=== PATIENT | male | born 1990 | race Caucasian/White ===

== ENCOUNTER 2023-05-06 06:57 | Emergency (ER) | payer OTHER ==
[2023-05-06 07:10] VITALS: RESP 22; TEMP 96.8
[2023-05-06] MEDS ORDERED: Sodium Chloride 0.9% 1000 ML 1,000 ML IV STA (07:20)
[2023-05-06] MEDS ORDERED: TORAdol 30 mg Injection IV ONE (07:20)
[2023-05-06] MEDS ORDERED: Zofran 4 MG/2 ML VIAL IV ONE (07:20)
[2023-05-06] MEDS ORDERED: Hydromorphone 1 mg/ml Injection IV ONE ×2 (07:20→10:39)
--- NOTE | 2023-05-06 07:20 | ERPHSYRPT ---
- History of Present Illness Time Seen by Provider: 05/06/23 07:20 Historian: patient Exam Limitations: no limitations Patient Subjective Stated Complaint: Pt states "I tore a ligament in my back about 6 months ago but I was driving home and my right lower back started to hurt and it will not stop." Triage Nursing Assessment: Pt presented alert and oriented skin pwd. P unable to sit still, able to speak in clear full sentences. Physician History: This is a 32-year-old white male patient who presents to the emergency department with sudden onset of right flank pain. There is no history of acute injury. Patient has been diagnosed with a torn lumbar spinal level muscle in the past. Today's pain is more sudden in onset and of higher intensity. There is no radiation of this sharp pain that is present. He has not noticed any hematuria. Patient takes no medication. He is allergic to penicillin. Patient denies chest pain. Patient denies shortness of breath. He has no flulike symptoms. Timing/Duration: today Activities at Onset: none Quality: sharpness, stabbing Abdominal Pain Onset Location: flank (Right) Severity of Pain-Max: moderate Severity of Pain-Current: moderate Modifying Factors: Improves With: nothing Associated Symptoms: denies symptoms Previous symptoms: no prior history, no recent treatment Allergies/Adverse Reactions: Penicillins Allergy (Mild, Verified 07/04/12 20:56) Hx Tetanus, Diphtheria Vaccination/Date Given: No Hx Influenza Vaccination/Date Given: No Hx Pneumococcal Vaccination/Date Given: No Immunizations Up to Date: No Travel Risk - International Travel Have you traveled outside of the country in past 3 weeks: No - Coronavirus Screening Are you exhibiting any of the following symptoms?: No Close contact with a COVID-19 positive Pt in past 14-21 Days: No - Vaccine Status Have you recieved a Covid-19 vaccination: No - Review of Systems Constitutional: No Symptoms Eyes: No Symptoms Ears, Nose, & Throat: No Symptoms Respiratory: No Symptoms Cardiac: No Symptoms Abdominal/Gastrointestinal: No Symptoms Genitourinary Symptoms: Flank Pain (Right flank pain) Musculoskeletal: Back Pain (Right side lumbar level) Skin: No Symptoms Neurological: No Symptoms Psychological: No Symptoms Endocrine: No Symptoms Hematologic/Lymphatic: No Symptoms Immunological/Allergic: No Symptoms All Other Systems: Reviewed and Negative - Past Medical History Pertinent Past Medical History: No - Past Surgical History Past Surgical History: Yes Other Surgical History: thumb - Social History Smoking Status: Never smoker Exposure to second hand smoke: No Drug Use: none Patient Lives Alone: No - Nursing Vital Signs Nursing Vital Signs: Initial Vital Signs Temperature 96.8 F 05/06/23 07:06 Pulse Rate 71 05/06/23 07:06 Respiratory Rate 22 05/06/23 07:06 Blood Pressure 127/75 05/06/23 07:06 O2 Sat by Pulse Oximetry 97 05/06/23 07:06 Pain Scale Pain Intensity 3 - Physical Exam General Appearance: mild distress, alert, anxiety Eye Exam: PERRL/EOMI, eyes nml inspection Ears, Nose, Throat Exam: normal ENT inspection, dry mucous membranes Neck Exam: normal inspection, non-tender, supple, full range of motion Respiratory Exam: normal breath sounds, lungs clear, airway intact, No chest tenderness, No respiratory distress Cardiovascular Exam: regular rate/rhythm, normal heart sounds, normal peripheral pulses Gastrointestinal/Abdomen Exam: soft, normal bowel sounds, No tenderness Rectal Exam: not done Back Exam: normal inspection, normal range of motion, CVA tenderness (Right side), muscle spasm (Right backlumbar spine level), No vertebral tenderness Extremity Exam: normal inspection, normal range of motion, pelvis stable Neurologic Exam: alert, oriented x 3, cooperative, 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, normal mood/affect, nml cerebellar function, sensation nml Skin Exam: normal color, warm, dry Lymphatic Exam: No adenopathy SpO2 Interpretation: normal SpO2: 97 O2 Delivery: Room Air - Course Nursing assessment & vital signs reviewed: Yes Ordered Tests: Active Orders 24 hr Category Date Time Status IV Insertion STAT Care 05/06/23 07:20 Active ABDOMEN AND PELVIS W/0 CONTRAS [CT] Stat Exams 05/06/23 07:21 Completed RECONSTRUCTION [CT] Stat Exams 05/06/23 07:22 Completed AMYLASE Stat Lab 05/06/23 07:20 Completed CBC W DIFF Stat Lab 05/06/23 07:15 Completed CMP Stat Lab 05/06/23 07:20 Completed CULTURE,URINE Stat Lab 05/06/23 09:51 Received LIPASE Stat Lab 05/06/23 07:20 Completed UA W/RFX UR CULTURE Stat Lab 05/06/23 09:51 Completed Medication Summary Generic Name Dose Route Start Last Admin Trade Name Freq PRN Reason Stop Dose Admin Sodium Chloride 500 mls @ 500 mls/hr 05/06/23 09:41 05/06/23 09:45 Sodium Chloride 0.9% 500 Ml IV 05/06/23 10:40 500 mls/hr .Q1H ONE Administration Discontinued Medications Generic Name Dose Route Start Last Admin Trade Name James PRN Reason Stop Dose Admin Hydromorphone HCl 1 mg 05/06/23 07:20 05/06/23 07:28 Hydromorphone 1 Mg/1ml Inj IV 05/06/23 07:21 1 mg STAT ONE Administration Hydromorphone HCl Confirm 05/06/23 07:23 Hydromorphone 1 Mg/1ml Inj Administered 05/06/23 07:24 Dose 1 mg .ROUTE .STK-MED ONE Sodium Chloride Confirm 05/06/23 07:22 Sodium Chloride 0.9% 1000 Ml Administered 05/06/23 07:23 Dose 1,000 mls @ ud .ROUTE .STK-MED ONE Sodium Chloride 1,000 mls @ 999 mls/hr 05/06/23 07:20 05/06/23 08:39 Sodium Chloride 0.9% 1000 Ml IV 05/06/23 08:20 Infused .Q1H1M STA Infusion Sodium Chloride Confirm 05/06/23 09:44 Sodium Chloride 0.9% 500 Ml Administered 05/06/23 09:45 Dose 500 mls @ ud IV .STK-MED ONE Ketorolac Tromethamine 30 mg 05/06/23 07:20 05/06/23 07:28 Ketorolac Tromethamine 30 Mg/Ml Inj IV 05/06/23 07:21 30 mg STAT ONE Administration Ketorolac Tromethamine Confirm 05/06/23 07:22 Ketorolac Tromethamine 30 Mg/Ml Inj Administered 05/06/23 07:23 Dose 30 mg .ROUTE .STK-MED ONE Ondansetron HCl 4 mg 05/06/23 07:20 05/06/23 07:28 Ondansetron Hcl 4 Mg/2 Ml Vial IV 05/06/23 07:21 4 mg STAT ONE Administration Ondansetron HCl Confirm 05/06/23 07:22 Ondansetron Hcl 4 Mg/2 Ml Vial Administered 05/06/23 07:23 Dose 4 mg .ROUTE .STK-MED ONE Tamsulosin HCl 0.4 mg 05/06/23 08:49 05/06/23 09:11 Tamsulosin Hcl 0.4 Mg Cap PO 05/06/23 08:50 0.4 mg STAT ONE Administration Tamsulosin HCl Confirm 05/06/23 09:10 Tamsulosin Hcl 0.4 Mg Cap Administered 05/06/23 09:11 Dose 0.4 mg .ROUTE .STK-MED ONE Lab/Rad Data: Laboratory Result Diagrams 05/06/23 07:15 05/06/23 07:20 Laboratory Results 05/06/23 05/06/23 05/06/23 Range/Units 09:51 07:20 07:15 WBC 8.3 (4.0-10.5) x10^3/uL RBC 5.07 (4.1-5.6) x10^6/uL Hgb 15.5 (12.5-18.0) g/dL Hct 44.6 (42-50) % MCV 88.0 (78-100) fL MCH 30.6 (26-32) pg MCHC 34.8 (32-36) g/dL RDW 11.9 (11.5-14.0) % Plt Count 328 (150-450) x10^3/uL MPV 10.1 (7.5-11.0) fL Gran % 51.9 (36.0-66.0) % Immature Gran % (Auto) 0.4 (0.00-0.4) % Nucleat RBC Rel Count 0.0 (0.00-0.1) % Eos # (Auto) 0.10 (0-0.5) x10^3/uL Immature Gran # (Auto) 0.03 (0.00-0.03) x10^3u/L Absolute Lymphs (auto) 2.84 (1.0-4.6) x10^3/uL Absolute Monos (auto) 0.93 (0.0-1.3) x10^3/uL Absolute Nucleated RBC 0.00 (0.00-0.01) x10^3u/L Lymphocytes % 34.3 (24.0-44.0) % Monocytes % 11.2 (0.0-12.0) % Eosinophils % 1.2 (0.00-5.0) % Basophils % 1.0 (0.0-0.4) % Absolute Granulocytes 4.30 (1.4-6.9) x10^3/uL Basophils # 0.08 (0-0.4) x10^3/uL Sodium 138 (137-145) mmol/L Potassium 3.8 (3.5-5.1) mmol/L Chloride 108 H (98-107) mmol/L Carbon Dioxide 19 L (22-30) mmol/L Anion Gap 15.1 H (5-15) MEQ/L BUN 14 (9-20) mg/dL Creatinine 1.13 (0.66-1.25) mg/dL Estimated GFR 89.7 ML/MIN Glucose 147 H (74-106) mg/dL Calcium 9.3 (8.4-10.2) mg/dL Total Bilirubin 0.60 (0.2-1.3) mg/dL AST 26 (17-59) U/L ALT 27 (0-50) U/L Alkaline Phosphatase 88 (38-126) U/L Serum Total Protein 7.0 (6.3-8.2) g/dL Albumin 4.3 (3.5-5.0) g/dL Amylase 62 (30-110) U/L Lipase 124 (23-300) U/L Urine Color Dark Yellow (Yellow) Urine Appearance Turbid A (Clear) Urine pH 5.0 (4.6-8.0) Ur Specific Atkins >=1.030 A (1.005-1.030) Urine Protein 100 A (Negative) Urine Glucose (UA) Negative (Negative) mg/dL Urine Ketones Negative (Negative) Urine Blood Large A (Negative) Urine Nitrite Negative (Negative) Urine Bilirubin Negative (Negative) Urine Urobilinogen 1.0 A (0.2) mg/dL Ur Leukocyte Esterase Negative (Negative) U Hyaline Cast (Auto) NONE SEEN (0-2) /LPF Urine Microscopic RBC >100 A (0-5) /HPF Urine Microscopic WBC 3-5 (0-5) /HPF Ur Epithelial Cells None Seen (None Seen) /HPF Calcium Oxalate Crystal 3-5 A (None Seen) /HPF Urine Bacteria Moderate A (None Seen) /HPF Urine Yeast (Budding) Rare A (None Seen) /HPF Urine Culture Reflexed YES (NO) - Progress Progress: improved, pain not gone completely, re-examined Progress Note: 05/06/23 07:38 This patient's medical issue is 1 of moderate complexity. Level complex in the workup performed is based on review of the patient's past medical history, review the patient's medication list, review the patient's drug allergy list, history present illness and physical findings on examination. Workup in this patient includes placement of intravenous line, infusion of 1 L normal saline solution, infusion 4 mg intravenous Zofran, infusion of 1 mg intravenous Dilaudid, infusion of 30 mg intravenous Toradol, amylase level, lipase level, urinalysis, CBC, CMP, CT scan of the abdomen pelvis with reconstruction of the lumbar spine. 05/06/23 08:[address] scans were interpreted by the radiologist and I reviewed the impression. The lumbar spine CT scan reconstruction is a normal CT of the lumbar spine. The CT scan of the abdomen pelvis without contrast was interpreted by the radiologist and I reviewed the impression. There is a 5 to 6 mm right UVJ calculus there is mild prominent right ureter and minimal hydronephrosis present consistent with partial obstruction. 05/06/23 10:21 I did review the urinalysis. The urine is turbid. There is 3-5 white cells and moderate amount of bacteria present. I will proceed with sending a prescription to his pharmacy for Cipro 500 mg orally twice a day. The culture is pending. Counseled pt/family regarding: lab results, diagnosis, need for follow-up, rad results Medical Desision Making - Independent Historian Additional History obtained from: Spouse - Diagnostic Testing Diagnostic test were ordered, analyzed, and reviewed by me: Yes Radiological Interpretation: Reviewed by me, Teleradiologist Report - Risk of complications The pt has a mod risk of morbidity or mortality based on: Need for prescription drug management - Departure Departure Disposition: Home Clinical Impression: Right ureteral calculus, UTI (urinary tract infection) Condition: Stable Critical Care Time: No Referrals: RADHA PAGE FNP [[employer] STAFF] - Follow up/PCP as directed Additional Instructions: Drink plenty of clear liquids. Add ibuprofen 600 mg with food orally 3 times a day for the next 5 days. Follow-up with urology at your scheduled appointment and time. The urology office will contact you. Take your medications as prescribed Prescriptions: Hydrocodone/APAP 5/325 [Copen 5/325 mg] 1 each PO Q8H PRN PRN #6 tablet MDD 3 PRN Reason: Pain Ciprofloxacin [Cipro 500 MG] 500 mg PO BID #14 tablet Tamsulosin HCl 0.4 mg [Flomax 0.4 MG] 0.4 mg PO DAILY #7 cap
[2023-05-06] MEDS ORDERED: Sodium Chloride 0.9% 1000 ML 1,000 ML ONE (07:22)
[2023-05-06] MEDS ORDERED: TORAdol 30 mg Injection ONE (07:22)
[2023-05-06] MEDS ORDERED: Zofran 4 MG/2 ML VIAL ONE (07:22)
[2023-05-06] MEDS ORDERED: Hydromorphone 1 mg/ml Injection ONE ×2 (07:23→10:42)
[2023-05-06 07:35] LABS: Basophil (Absolute #) 0.08 x10^3/uL (0-0.4); Eosinophil % 1.2 % (0.00-5.0); Hematocrit 44.6 % (42-50); Hemoglobin 15.5 g/dL (12.5-18.0); IMMATURE GRAN # 0.03 x10^3u/L (0.00-0.03); IMMATURE GRAN % 0.4 % (0.00-0.4); Lymphocyte (Absolute #) 2.84 x10^3/uL (1.0-4.6); Lymphocytes % 34.3 % (24.0-44.0); Mean Corpuscular Hemoglobin 30.6 pg (26-32); Mean Corpuscular Hgb Concent. 34.8 g/dL (32-36); Mean Platelet Volume 10.1 fL (7.5-11.0); Monocyte (Absolute #) 0.93 x10^3/uL (0.0-1.3); Monocytes % 11.2 % (0.0-12.0); Neutrophil % 51.9 % (36.0-66.0); Platelet Count 328 x10^3/uL (150-450); Red Blood Count 5.07 x10^6/uL (4.1-5.6); Red Cell Distribution Width 11.9 % (11.5-14.0); White Blood Count 8.3 x10^3/uL (4.0-10.5)
[2023-05-06 07:47] LABS: ALBUMIN 4.3 g/dL (3.5-5.0); ANION GAP 15.1 MEQ/L (5-15); BILIRUBIN,TOTAL 0.6 mg/dL (0.2-1.3); Calcium 9.3 mg/dL (8.4-10.2); Creatinine 1 1.13 mg/dL (0.66-1.25); EST GLOMERULAR FILTRATION RATE 89.7 ML/MIN; Potassium 3.8 mmol/L (3.5-5.1)
--- NOTE | 2023-05-06 08:45 | XRAY ---
Indication: Right flank pain. Sagittal, coronal, and axial reformatted images lumbar spine obtained using right data from same day CT abdomen/pelvis. Comparison: None No acute fracture, suspicious bony lesions, or spinal canal stenosis. Facets are symmetric. Sagittal and coronal reformatted images demonstrates normal alignment with vertebral body heights/disc spaces maintained. CT abdomen/pelvis reported separately. Impression: Normal CT lumbar spine.
--- NOTE | 2023-05-06 08:45 | XRAY ---
Indication: Right flank pain. Multiple contiguous axial images obtained through the abdomen and pelvis without contrast. Comparison: None Lung bases demonstrate minimal dependent atelectasis. Heart not enlarged. Noncontrasted stomach and bowel loops appear nonobstructed with normal appearing appendix. 5-6 mm right UVJ calculus with mild prominent right ureter and minimal hydronephrosis consistent with partial obstructive uropathy. Additional punctate calculus inferior right kidney. No free fluid/air. Remaining liver, gallbladder, pancreas, spleen, adrenal glands, kidneys, ureters, bladder, and aorta are unremarkable for noncontrast exam. Osseous structures intact. Impression: 5-6 mm right UVJ calculus producing partial obstruction. Additional right renal punctate calculus.
[2023-05-06] MEDS ORDERED: Flomax 0.4 MG PO ONE (08:49)
[2023-05-06] MEDS ORDERED: Flomax 0.4 MG ONE (09:10)
[2023-05-06 09:38] VITALS: PULSE 68
[2023-05-06] MEDS ORDERED: Sodium Chloride 0.9% 500 ML 500 ML IV ONE ×2 (09:41→09:44)
[2023-05-06 10:13] LABS: Appearance Turbid (Clear); Bilirubin Negative (Negative); Blood Large (Negative); Epithelial Cells None Seen /HPF (None Seen); Glucose, Urine Negative (Negative); Ketones Negative (Negative); Leukocyte Esterase Negative (Negative); Nitrite Negative (Negative); Protein,Urine Dip 100 (Negative); RBC >100 /HPF (0-5); Specific Gravity >=1.030 (1.005-1.030)
[2023-05-06 10:14] LABS: ADD URINE CULTURE? YES (NO); Bacteria Moderate /HPF (None Seen); Budding Yeast Rare /HPF (None Seen); Hyaline Casts NONE SEEN /LPF (0-2)
[2023-05-06 11:09] VITALS: BP 97/63; O2SAT 93
== END 2023-05-06 11:09 | disposition home or self-care (01) ==
LOC: ED 06:57
DX: N13.2 Hydronephrosis with renal and ureteral calculous obstruction (principal); N39.0 Urinary tract infection, site not specified; R10.9 Unspecified abdominal pain; Z79.891 Long term (current) use of opiate analgesic; Z28.310 Unvaccinated for COVID-19
CPT/HCPCS: 36000; 36415; 74176; 76376; 80053; 81001; 82150; 83690; 85025; 87086; 96360; 96374; 96375; 96376; 99284; J1170; J1885; J2405; A9270-GY